=== PATIENT | female | born 1995 | race Caucasian/White ===

== ENCOUNTER → 2017-10-26 | Outpatient (CLI) | payer OTHER ==
[~2017-10-26] MED LIST: CONTRAST GIVEN MC PRN; IOHEXOL 180 MG/ML 10 ML VIAL. INT UTERIN ONE
--- NOTE | 2017-10-26 12:27 | KCIC ---
Hysterosalpingogram HISTORY: Infertility for 3 years COMPARISON: None TECHNIQUE: Patient was informed of the risks to include pain, infection, bleeding, allergic reaction. All questions were answered. Patient signed a written consent form for hysterosalpingogram. Patient was placed in a supine position on the fluoroscopy table. External skin surface was cleansed with Betadine solution. Speculum was inserted. Cervix was cleansed with Betadine solution. HSG catheter was inserted and secured with balloon inflation. Contrast was injected during fluoroscopic visualization, 12 cc of Omnipaque 180. The balloon was deflated and catheter removed. Speculum was removed. There were no immediate complications. FINDINGS: No focal filling defect is identified of the uterus. Both fallopian tubes are patent. Cervix is patent. Fluoroscopy time: 30 seconds, 7 images. IMPRESSION: 1. Both fallopian tubes are patent. Electronically signed by: Rylan Mathew MD (10/26/2017 12:23 PM) [id number]
== END | disposition home or self-care (01) ==
LOC: KCIC 10:47
PROVIDERS: ATTEND Obstetrics & Gynecology
DX: N97.9 Female infertility, unspecified (principal)
CPT/HCPCS: 74400